=== PATIENT | female | born 1945 | race Caucasian/White ===

== ENCOUNTER 2024-09-21 20:27 | Emergency (ER) | payer MEDICARE, OTHER, SELFPAY ==
[2024-09-21 20:31] VITALS: BP 92/64
[2024-09-21 22:38] VITALS: BP 129/68
[2024-09-21 23:32] VITALS: BP 136/84
--- NOTE | 2024-09-21 23:33 | ED.GENMED ---
History of Present Illness
General
Chief Complaint: Skin Surface Trauma
Source: patient and family
Time Seen by Provider: 09/21/24 22:23
History of Present Illness
History of Present Illness:
Note:
CHIEF COMPLAINT(S)
Pain in the left chest wall and skin tears on the arms following a fall.
HISTORY OF PRESENT ILLNESS
The patient is a 79-year-old female who presented with chest pain and skin tears on the arms. The patient reports falling earlier today but does not feel as though any bones are broken. There is significant bleeding from the skin tears, described as
a good gash on one side, while the other is less severe. She noted discomfort on the left side of the chest that occurred on her way to the medical facility. The chest pain and skin tears are the primary concerns. The patient denies hitting her head
or losing consciousness. She is currently not on blood thinners.
ADDITIONAL HISTORY OBTAINED FROM SOURCES OTHER THAN THE PATIENT
While en route to the facility, the patients escort mentioned that she was complaining about chest pain. There is an implication that the circumstances of the fall may have influenced her current symptoms.
CHRONIC MEDICAL CONDITIONS SIGNIFICANTLY AFFECTING CARE
The patient has a chronic medical condition, specifically uncontrolled bleeding due to the fall. Details on management or treatment for this condition are not discussed in detail.
SOCIAL HISTORY
The patient reports alcohol use but does not specify the amount typically consumed.
REVIEW OF SYSTEMS
- Chest: Discomfort on the left side.
- Skin: Skin tears noted on the arms with significant bleeding from one site.
PHYSICAL EXAM
- Nursing notes reviewed and vital signs reviewed.
Patient awake, alert, and oriented x 3, no acute distress.
Pupils equal round reactive to light and accommodation. Extraocular motion intact.
Neck is supple
Lungs: Sounds are described as good. No wheezes, rales, or rhonchi present
Skin is warm and dry.
No edema noted.
Back: Physical examination performed for additional context regarding the fall.
6 cm skin tear on the right forearm proximal to the wrist.
4 cm skin tear on the left elbow
PLAN
- A computed tomography scan of the head is planned to rule out intracranial bleeding, given the history of a fall and potential loss of consciousness symptoms.
- Evaluation of the skin tears on the right wrist and left elbow with potential repair if necessary.
DIFFERENTIAL DIAGNOSIS
The Differential Diagnosis includes, in no particular order and is not limited to:
. Contusion from fall
. Intracranial hemorrhage
. Chest wall injury
. Skin laceration
. Alcohol intoxication
. Rib fracture
.Pneumothorax
.Bruising from anticoagulation therapy
CARE-UPDATE
09/21/24 - 23:22
CT results indicate no acute intracranial abnormalities, suggesting no immediate concerns for significant brain injury or bleeding. Chest X-ray shows no displaced rib fractures and no acute cardiopulmonary process. Continue current observation and
management plan without need for further immediate intervention.
Past History
Past History
ED Past Medical History: COPD, GERD, Hypercholesterolemia, Other (Spinal stenosis and chronic back pain), Other (Past ligamentous) and Other (Chronic left foot drop)
ED Past Surgical History: Cholecystectomy
Social History
Tobacco: Former smoker (Quit 5 years ago)
Alcohol: Occasional
Living: with family
Family History
Family History: Other (Coronary disease, diabetes, thyroid disease)
Course
Orders/Labs/Results
Orders:
Orders
09/21/24 20:39
Electrocardiogram (*1) Urgent
Reason for Study: Chest Pain
EKG- Treatment ONCE
Ribs, Left 3 View W/PA Chest CR [CR Ribs-left 3 Vw W/pa Chest] Urgent
Comment:
Reason For Exam: fall, left sided chest pain/rib pain
09/21/24 22:37
CT Head W/o Iv Contrast Urgent
Comment:
Reason For Exam: fall, +etoh, possible LOC
Vital Signs
Initial and Last Documented VS:
Initial Vital Signs
Temp Pulse Resp BP Pulse Ox
98.1 F 73 18 92/64 93
09/21/24 20:31 09/21/24 20:31 09/21/24 20:31 09/21/24 20:31 09/21/24 20:31
Last Documented Vital Signs
Temp Pulse Resp BP Pulse Ox
98.1 F 96 20 129/68 92
09/21/24 20:31 09/21/24 23:15 09/21/24 23:15 09/21/24 22:38 09/21/24 22:38
Procedures
Other
Indication for procedure:: Skin tears
Procedure completed by: Myself
Additional Procedure:
Using Dermabond Prineo, both skin tears were closed.
*Pulse Oximetry
Patient hypoxic: no (96% on room air)
*Critical Care Note
Total Time (30-74mins, 75-104mins- exclusive of procedures): Not Applicable
ED Attending Note
-
Portions of this chart may have been created with voice recognition software.� Occasional wrong word or��sound alike� substitutions may have occurred due to the inherent limitations of voice recognition software.
Discharge Plan
Departure
Patient Disposition: Home (Routine Discharge)
Date of Disposition: 09/21/24
Time of Disposition: 23:37
Patient with high blood pressure during this ER visit?: Yes
Discharge Problem:
Skin tear of elbow without complication, Tear of skin of right wrist
Instructions: Laceration Repair With Glue (DC), Wound Care (DC), Alcohol and your health, Preventing falls - ED discharge instructions, BLOOD PRESSURE
Prescriptions:
No Action
Percogesic Extra Strength 1 TAB tablet
1 tab PO .Q6H PRN (Reason: pain)
albuterol sulfate 18 GM HFA aerosol inhaler
2 puff inhalation .Q4H PRN (Reason: wheezing)
Immune Globulin 30 Grams/300Ml
30 gm IV .Q4WKS
trazodone 50 MG tablet
100 mg PO HS
metoprolol succinate 25 MG tablet extended release 24 hr
100 mg PO DAILY
azithromycin 250 MG tablet
250 mg PO DAILY
prednisone 20 MG tablet
10 mg PO DAILY
Qvar RediHaler 80 mcg/actuation Hfa Aerosol Breath Activated
1 inh INHALATION DAILY
Trelegy Ellipta 100-62.5-25 mcg Blister With Device
1 inh INHALATION DAILY
Dupixent Syringe 100 mg/0.67 mL Syringe
200 mg SC Q2W
escitalopram oxalate 10 MG tablet
10 mg PO DAILY Qty: 30 0RF
Referrals:
Stanley Thayer MD [Family Provider, [facility]]
Activity Restrictions/Additional Instructions:
Thank You for choosing [facility].
It was a pleasure meeting you and taking part in your care. We hope for your continued healing and wellness.
Please read discharge instructions in their entirety. However, they are for general education and may not describe your exact diagnosis at discharge. Information on your ER visit and medical conditions were discussed with you along with appropriate
follow up information...
If indicated, please take your medications as instructed and indicated on discharge paperwork.
Please schedule a follow up appointment as directed. Call to schedule an appointment
Please return to the emergency department with ANY change in, persisting, or worsening of symptoms. If any of your symptoms do not improve, or persist, or become more severe within 6-12 hours, please return to the emergency department for further
care.
Please return to the emergency department if you develop a headache, neck pain/stiffness, fever greater than 100.4F, chest pain, shortness of breath, persistent nausea, vomiting, slurred speech, difficulty walking, numbness/tingling, weakness, signs
of infection or any other symptoms that are worrisome to you.
If you have any questions or concerns please do not hesitate to call the Hospital at .
Interventions
Interventions:
*Risk Screen - Suicide Last Done: 09/21/24 20:31
*General Assessment Last Done: 09/21/24 20:31
*Neglect/Abuse Screening Last Done: 09/21/24 20:31
*ED- Fall Risk Assessment Last Done: 09/21/24 22:32
*ED COVID-19 Vaccine History Last Done: 09/21/24 22:32
ED-Skin Assessment Last Done: 09/21/24 22:32
Discharge Date and Time
Print Language: CITIZEN [place]
== END 2024-09-21 23:55 | disposition home or self-care (01) ==
LOC: EMR 20:27
PROVIDERS: EMERGENCY PHYSICIAN Student in an Organized Health Care Education/Training Program; FAMILY PHYSICIAN Family Medicine
DX: S51.012A Laceration without foreign body of left elbow, initial encounter (principal); S61.511A Laceration without foreign body of right wrist, initial encounter; Z87.891 Personal history of nicotine dependence; W19.XXXA Unspecified fall, initial encounter; R03.0 Elevated blood-pressure reading, without diagnosis of hypertension
CPT/HCPCS: 99285; 12004; 70450; 71101; 93005